=== PATIENT | male | born 2000 | race American Indian/Alaskan Native ===

== ENCOUNTER 2022-06-27 10:48 | Emergency (ER) | payer OTHER, SELFPAY ==
[2022-06-27 10:59] VITALS: BP 128/80; PULSE 80; RESP 16; TEMP 37; O2SAT 99
--- NOTE | 2022-06-27 13:14 | ED.MALEGU ---
HPI - Male Genitourinary General Chief complaint: Urogenital-Male Stated complaint: STD Exposed Time Seen by Provider: 06/27/22 13:15 Source: patient, RN notes reviewed and old records reviewed Mode of arrival: ambulatory Limitations: no limitations History of Present Illness HPI Narrative: 22-year-old male who presents to [facility] with complaints known exposure to chlamydia wanting testing done for STD's. Patient reports that girlfriend recently diagnosed with PID, herpes and chlamydia. Patient denies any symptoms of burning with urination, no penis drainage or any lesions on penis or genitals. Patient wants treatment for Chlymydia only wants to wait for results of testing for any further treatment if positive. MD Complaint: other (exposure to Chylmydia) Related Data Allergies Allergy/AdvReac Type Severity Reaction Status Date / Time No Known Allergies Allergy Verified 06/27/22 12:02 Review of Systems Review of Systems: CONSTITUTIONAL: Denies fever, chills, or sweats. EYES: Denies visual changes, redness, or discharge. ENT: Denies rhinorrhea, congestion, sore throat, or otalgia. CARDIOVASCULAR: Denies chest pain, palpitations, or edema. RESPIRATORY: Denies cough or dyspnea. GASTROINTESTINAL: Denies abdominal pain, nausea, vomiting, or diarrhea. GENITOURINARY: Denies dysuria or hematuria.denies any penis drainage or any lesions noted to penis or genitals. SKIN: Denies rash or itching. MUSCULOSKELETAL: Denies back pain, joint pain, or myalgia. NEUROLOGIC: Denies headache, numbness, or weakness. PSYCHIATRIC: Denies anxiety or depression. All systems reviewed & are unremarkable except as noted in HPI and below PMFSH Past Medical History Medical History (Updated 07/01/22 @ 21:37 by Gale Young NP) Asthma Social History Social History (Updated 07/01/22 @ 21:38 by Gale Young NP) Smoking status: Current every day smoker Tobacco type: e-cigarettes/vaping Alcohol intake: current Alcohol use details: social Substance use: current Substance use type: marijuana Gender identity (if verbalized by the patient): Male Comments At time of signature, agree with nursing past medical, surgical, social and family history. There is no relevant family history pertinent to the presenting complaint Exam Narrative: GENERAL: Well-appearing, well-nourished, and in no acute distress. HEAD: Normocephalic, atraumatic. EYES: PERRLA and EOMI. ENT: Nares clear, no rhinorrhea or epistaxis. Mucous membranes moist.TM's normal with good light reflex, throat pink with no lesions or exudates. NECK: Supple.no lymphadenopathy CHEST: Clear to auscultation. No respiratory distress.SAO2 99% on room air HEART: Regular rate and rhythm. No murmur heard. Normal peripheral pulses. ABDOMEN: Soft, nontender, nondistended, normal active bowel sounds. EXTREMITIES: Normal range of motion. No edema. SKIN: Warm, dry, no rash. NEURO: No focal deficits. Alert and oriented x3. Course Course Emergency Course: Patient is aware of diagnosis, understands and agrees to treatment plan.? Anticipatory guidance given.? Patient agrees to follow-up as directed and is aware of reasons to seek care at the emergency department. Portions of this record may have been created with voice recognition software Level of Care: Express Care Visit Vital Signs Vital signs: Vital Signs Temperature 37.0 C 06/27/22 10:59 Pulse Rate 80 06/27/22 10:59 Respiratory Rate 16 06/27/22 10:59 Blood Pressure 128/80 06/27/22 10:59 Pulse Oximetry 99 06/27/22 10:59 Oxygen Delivery Room Air 06/27/22 10:59 Temperature 37.0 C 06/27/22 10:59 Pulse Rate 80 06/27/22 10:59 Respiratory Rate 16 06/27/22 10:59 Blood Pressure 128/80 06/27/22 10:59 Pulse Oximetry 99 06/27/22 10:59 Oxygen Delivery Room Air 06/27/22 10:59 Reviewed MDM - Male Genitourinary MDM Narrative Medical decision making narrative: Patient was notified of positive
== END 2022-06-27 13:35 | disposition home or self-care (01) ==
PROVIDERS: Emergency Provider Registered Nurse
DX: Z20.2 Contact with and (suspected) exposure to infections with a predominantly sexual mode of transmission (principal); F17.290 Nicotine dependence, other tobacco product, uncomplicated; J45.909 Unspecified asthma, uncomplicated
CPT/HCPCS: 87491; 87591; 87661; 99213; G0463